=== PATIENT | male | born 1955 | race Caucasian/White ===

== ENCOUNTER 2023-01-02 11:00 | Day surgery (SDC) | payer BC, OTHER ==
--- NOTE | 2022-12-27 14:01 | RAD REPORT ---
EXAM DESCRIPTION: RAD - Chest Pa And Lat (2 Views) - 12/27/2022 1:54 pm CLINICAL HISTORY: Pre op pending heart catheterization COMPARISON: <Comparisons> FINDINGS: Lines: None. Lungs: No evidence of edema or pneumonia. Pleural: No significant pleural effusions or pneumothorax. Cardiac: The heart size is within normal limits. Mediastinum: Within normal limits. Bones: No acute fractures. Other: None IMPRESSION: No acute cardiopulmonary disease.
[2022-12-27 14:02] LABS: Absolute Lymphocytes (CBC) 1.8 K/uL (0.7-4.9); Hematocrit 42.8 % (39.6-49.0); Lymphocytes % 24.1 % (15.3-44.8); MCV 89.5 fL (80-100); MPV 7.8 fL (7.6-11.3); Platelets 158 thou/uL (152-406); RBC Red Blood Cell Count 4.78 M/uL (4.33-5.43)
[2022-12-27 14:11] LABS: Protime INR 0.91
[2022-12-27 14:20] LABS: Potassium 4.2 mEq/L (3.5-5.1)
--- NOTE | 2022-12-28 16:51 | EKG ---
Test Date: 2022-12-27 Test Time: 14:41:20 Ceramic Tiler: BRENNA MEASUREMENT RESULTS: Intervals: Rate: 52 MO: 172 QRSD: 98 QT: 428 QTc: 398 [place]: P: 29 MO: 172 QRS: -19 T: 59 INTERPRETIVE STATEMENTS: Sinus bradycardia Otherwise normal ECG No previous ECG available for comparison Electronically Signed On 12-28-22 16:49:33 CLINICAL SPECIALTY REP by Lewis Mendes
[2023-01-02] MEDS ORDERED: NA CHLORIDE 0.9% 500 ML ONE (11:51)
[2023-01-02] MEDS ORDERED: HEPA 1000U/500MLS 2,000 UNIT/1,000 ML BAG IV ONE (12:06)
[2023-01-02] MEDS ORDERED: LIDOCAINE 1% 20 ML MDV ONE (12:06)
[2023-01-02] MEDS ORDERED: HEPARIN 5000 UNIT/ML 1 ML VIAL ONE (12:14)
[2023-01-02] MEDS ORDERED: VERAPAMIL HCL 10 MG/4 ML VIAL IV ONE (12:14)
[2023-01-02] MEDS ORDERED: FENTANYL CITR 100 MCG/2 ML ONE (12:14)
[2023-01-02] MEDS ORDERED: MIDAZOLAM HCL 2 MG/2 ML INJ ONE (12:14)
[2023-01-02] MEDS ORDERED: ASPIRIN 325 MG TAB ONE (12:15)
[2023-01-02] MEDS ORDERED: HEPARIN 10,000 UNIT/10 ML VIAL IV ONE (12:15)
[2023-01-02] MEDS ORDERED: ATROPINE SULF 1 MG/10 ML SYR IV ONE (12:15)
[2023-01-02] MEDS ORDERED: CLOPIDOGREL 75 MG TABLET ONE (12:15)
[2023-01-02] MEDS ORDERED: TICAGRELOR 90 MG TABLET PO ONE (12:15)
[2023-01-02] MEDS ORDERED: NITROGLYCERIN 100 MCG/ML SYR (for cath lab use only) IV ONE (12:16)
[2023-01-02 14:01] VITALS: TEMP 98; O2SAT 97
--- NOTE | 2023-01-02 14:34 | OP ---
Date of Procedure: 01/02/2023 Surgeon: BATSHEVA KNUTSON Procedures Performed: 1.Selective coronary angiogram. 2.Left heart catheterization. 3.Right heart catheterization. Indications: 1.Unstable angina. 2.Severe shortness of breath. Access: 1.Right radial artery 6-Finnish, closed with TR band. 2.Right IJ 7-Finnish, closed with manual pressure. Complications: None. Bleeding: Less than 20 mL. Anesthesia: Total sedation time was 30 minutes. Description Of Procedure: After risks, benefits, and alternatives were explained, the patient agreed to procedure and signed informed consent. The patient was brought into cardiac catheterization [facility], prepped and draped in usual sterile fashion and then I accessed right radial artery using ped iatric micropuncture kit and placed a 6-Finnish slender sheath and then accessed right IJ using a micr opuncture kit, ultrasound guidance, and placed a 7-Finnish pinnacle sheath and then took a 7-Finnish ba lloon-tipped [place] catheter through the right IJ into the right atrium, right ventricle, PA, and the w edge, obtained waveform and pressure and then obtained thermodilutional cardiac output and then remov ed the [place] and then I took 5-Finnish [place] 4.0 catheter over J-wire through the radial access into th e aortic root, engaged left main, took standard views, and then RCA and took standard views and the c atheter was pushed over the wire into the LV, measured the LVEDP, and pullback did not record any gra dient and removed the catheter and the sheath. TR band placed with good hemostasis. The IJ sheath w as removed and manual pressure was used for closure with good hemostasis. Findings: 1.Left main, large and normal. 2.LAD, large and normal. Normal diagonal branches. 3.Left circumflex is normal. 4.RCA is dominant and normal. 5.LVEDP borderline at 50 mmHg. The right heart catheterization numbers are RA pressure is 12/8 with a mean of 9. RV pressure is 20/ 2, mean of 6. PA pressure was 21/10, mean of 15, pulmonary wedge pressure was 8, and cardiac output average was 5.3 L/minute. Conclusion: 1.Normal coronary arteries. 2.Mildly elevated LVEDP. Plan: Medical management shortness of breath, mainly lungs. SR/MODL Voice ID: [id number] Report ID: [id number]
[2023-01-02 15:41] VITALS: BP 141/70
== END 2023-01-02 14:50 | disposition home or self-care (01) ==
LOC: CCL 11:00
PROVIDERS: ATTEND Internal Medicine
DX: I20.0 Unstable angina (principal); R06.02 Shortness of breath; I11.0 Hypertensive heart disease with heart failure; I50.31 Acute diastolic (congestive) heart failure; E78.2 Mixed hyperlipidemia; Z87.891 Personal history of nicotine dependence; Z79.82 Long term (current) use of aspirin; Z79.899 Other long term (current) drug therapy
CPT/HCPCS: 93005; 85025; 80048; 36415; 83721; 85610; 85730; 71046; 93460; 76937; C1893; Q9966; J1644; J2001; J2250; J3010; J7040; J0461